=== PATIENT | male | born 1985 | race African-American/Black ===

== ENCOUNTER → 2017-11-05 | Day surgery (SDC) | payer OTHER ==
[~2017-11-05] MED LIST: DESFLURANE 61 TO 120 MINUTES IH; DEXAMETHASONE SOD PHOS 20 MG/5 ML VIAL.; GLYCOPYRROLATE 1 MG/5 ML VIAL.; LIDOCAINE 1% PF 2 ML VIAL. ID; LIDOCAINE 2% PF Vial for OR 5 ML VIAL.; MORPHINE SULFATE 2 MG/ML DISP.SYRIN. IV; NEOSTIGMINE 10 MG/10 ML VIAL.; ONDANSETRON PF 4 MG/2 ML VIAL.; ONDANSETRON PF 4 MG/2 ML VIAL. IV; PROCHLORPERAZINE 10 MG/2 ML VIAL. IV; PROPOFOL 20 ML IV; ROCURONIUM 50 MG/5 ML VIAL.; SUCCINYLCHOLINE 200 MG/10 ML VIAL.; ceFAZolin 2GM PREMIX 2 GM/50 ML BAG IV; fentaNYL PF VIAL 100 MCG/2 ML VIAL; fentaNYL PF VIAL 100 MCG/2 ML VIAL IV; oxyCODONE/APAP 5/325 1 TAB TABLET PO
[2017-11-05] MEDS: IV RINGERS,LACTATED 1000ML 1,000 ML IV (07:48)
[2017-11-05] MEDS: BUPIVACAINE-EPI 0.25%-1:200000 50 ML VIAL. (08:27)
[2017-11-05] MEDS: fentaNYL PF VIAL 100 MCG/2 ML VIAL IV ×2 (09:32→10:01)
[2017-11-05] MEDS: oxyCODONE/APAP 5/325 1 TAB TABLET PO (10:03)
== END | disposition home or self-care (01) ==
LOC: SURG 07:24
DX: K40.90 Unilateral inguinal hernia, without obstruction or gangrene, not specified as recurrent (principal); K42.9 Umbilical hernia without obstruction or gangrene; I10 Essential (primary) hypertension; F32.9 Major depressive disorder, single episode, unspecified; F41.9 Anxiety disorder, unspecified; Z72.89 Other problems related to lifestyle; F17.210 Nicotine dependence, cigarettes, uncomplicated; F12.90 Cannabis use, unspecified, uncomplicated; Z79.899 Other long term (current) drug therapy; Z83.3 Family history of diabetes mellitus
CPT/HCPCS: 49585; A7015; C1781; J0330; J0690; J1100; J2001; J2405; J2704; J2710; J3010; J3490; J7120